=== PATIENT | female | born 1965 | race Hispanic/Latino ===

== ENCOUNTER 2017-10-11 05:33 | Day surgery (SDC) | payer OTHER ==
[~2017-10-11] VITALS: Ht 154.9 cm; Wt 90.6 kg
[~2017-10-11 05:33] MED LIST: ASPI-1197 PO; LISI10TA7 PO; PANT40TA25 PO; TRAM50TA4 PO
[2017-10-11] MEDS ORDERED: SODIUM CHLORIDE 0.9% 1000ML 1,000 ML IV ONE (05:59)
[2017-10-11 06:10] VITALS: BP 125/77
[2017-10-11] MEDS ORDERED: PROPOFOL 1000 MG/100 ML 100 ML IV ONE (08:18)
== END 2017-10-11 09:00 ==
LOC: DAH 05:33
PROVIDERS: ATTEND Internal Medicine
DX: Z12.11 Encounter for screening for malignant neoplasm of colon (principal); K29.50 Unspecified chronic gastritis without bleeding; K57.30 Diverticulosis of large intestine without perforation or abscess without bleeding; K64.8 Other hemorrhoids; K20.8 Other esophagitis; K21.0 Gastro-esophageal reflux disease with esophagitis; Z79.82 Long term (current) use of aspirin; Z79.899 Other long term (current) drug therapy; E78.4 Other hyperlipidemia; I10 Essential (primary) hypertension
CPT/HCPCS: 43239; 45378; 81025; A4606; J2704; J7030

== ENCOUNTER 2021-07-18 08:33 | Day surgery (SDC) | payer OTHER ==
[~2021-07-18] VITALS: Ht 149.9 cm; Wt 95.3 kg
[~2021-07-18 08:33] MED LIST changes: +0.9%NACL 1000ML 1,000 ML IV ONE; +LISI10TA24 PO; -LISI10TA7 PO; -PANT40TA25 PO; +PANT40TA54 PO
[2021-07-18 09:00] VITALS: BP 142/84
[2021-07-18] MEDS ORDERED: PROPOFOL 10 MG/ML 20ML VIAL IV ONE (11:23)
[2021-07-18 11:50] VITALS: BP 114/70
[2021-07-18 11:55] VITALS: BP 118/74
[2021-07-18 12:00] VITALS: BP 114/75
[2021-07-18 12:05] VITALS: BP 109/75
[2021-07-18 12:10] VITALS: BP 121/79
== END 2021-07-18 12:15 | disposition home or self-care (01) ==
LOC: DAH 08:33 → ENDO 08:33
PROVIDERS: ATTEND Internal Medicine Gastroenterology
DX: R10.13 Epigastric pain (principal); Z20.822 Contact with and (suspected) exposure to COVID-19; K21.00 Gastro-esophageal reflux disease with esophagitis, without bleeding; K29.70 Gastritis, unspecified, without bleeding; K76.0 Fatty (change of) liver, not elsewhere classified; K59.01 Slow transit constipation; K31.84 Gastroparesis; E11.9 Type 2 diabetes mellitus without complications; I10 Essential (primary) hypertension; E78.5 Hyperlipidemia, unspecified; M19.90 Unspecified osteoarthritis, unspecified site; Z90.49 Acquired absence of other specified parts of digestive tract; Z98.49 Cataract extraction status, unspecified eye; Z98.890 Other specified postprocedural states; Z90.89 Acquired absence of other organs; Z98.891 History of uterine scar from previous surgery
CPT/HCPCS: 43239; 82948; 87635; A4215 ×2; A4221; A4222; A4223; A4606; A4620; A4663; C9803; J2704; J7030

== ENCOUNTER 2023-10-30 08:15 | Day surgery (SDC) | payer OTHER ==
[~2023-10-30] VITALS: Ht 149.9 cm; Wt 86.2 kg
[2023-10-30] VITALS (11 sets, daily range): BP systolic 97–162; BP diastolic 56–80; PULSE 66–89; RESP 14–17
[~2023-10-30 08:15] MED LIST changes: -0.9%NACL 1000ML 1,000 ML IV ONE
[2023-10-30] MEDS ORDERED: METF-446 PO (08:55)
[2023-10-30] MEDS ORDERED: LISI10TA24 PO (08:55)
[2023-10-30] MEDS ORDERED: FISH1CAP20 PO (08:55)
[2023-10-30] MEDS ORDERED: DAPA10TA PO (08:55)
[2023-10-30] MEDS ORDERED: 0.9%NACL 1000ML 1,000 ML IV ONE (08:58)
[2023-10-30] MEDS ORDERED: PROPOFOL 10 MG/ML 20ML VIAL IV ONE ×3 (11:30→11:31)
== END 2023-10-30 13:10 | disposition home or self-care (01) ==
LOC: ENDO 08:15 → DAH 08:15 → ENDO 13:10
PROVIDERS: ATTEND Internal Medicine Gastroenterology
DX: R19.4 Change in bowel habit (principal); K21.00 Gastro-esophageal reflux disease with esophagitis, without bleeding; R12 Heartburn; K29.50 Unspecified chronic gastritis without bleeding; R10.12 Left upper quadrant pain; K64.9 Unspecified hemorrhoids; K57.30 Diverticulosis of large intestine without perforation or abscess without bleeding; K76.0 Fatty (change of) liver, not elsewhere classified; E11.43 Type 2 diabetes mellitus with diabetic autonomic (poly)neuropathy; K31.84 Gastroparesis; I10 Essential (primary) hypertension; E78.5 Hyperlipidemia, unspecified; M19.90 Unspecified osteoarthritis, unspecified site; Z79.84 Long term (current) use of oral hypoglycemic drugs; Z79.899 Other long term (current) drug therapy; Z90.49 Acquired absence of other specified parts of digestive tract; Z90.89 Acquired absence of other organs; Z98.890 Other specified postprocedural states; Z98.891 History of uterine scar from previous surgery
CPT/HCPCS: 81025; 82948 ×2; 43239; 45378; J7030 ×2; J2704 ×3; A4620; A4215; A4223; A4657; A7002; A4222; A4221; A4663; A4606; J3490